=== PATIENT | female | born 1960 | race Hispanic/Latino ===

== ENCOUNTER 2018-01-17 18:12 | Emergency (ER) | payer BC ==
[2018-01-17 18:41] VITALS: BP 146/83; PULSE 66; RESP 20; TEMP 98.6; O2SAT 100
[2018-01-17] MEDS ORDERED: Naproxen 500 MG TAB PO STA (18:57)
[2018-01-17] MEDS ORDERED: Naproxen 500 MG TAB PO ONE (19:02)
--- NOTE | 2018-01-17 19:22 | ED PDOC ---
HPI: Trauma/Fall - HPI Time Seen by Provider: 01/17/18 18:45 Chief Complaint (Nursing): Trauma Chief Complaint (Provider): Left Upper Extremity Pain History Per: Patient History/Exam Limitations: no limitations Injury Occurred (Timing): Just Before Arrival Past Medical History Reviewed: Historical Data, Nursing Documentation, Vital Signs Vital Signs: Last Vital Signs Temp 98.6 F 01/17/18 18:39 Pulse 66 01/17/18 18:39 Resp 20 01/17/18 18:39 BP 146/83 01/17/18 18:39 Pulse Ox 100 01/17/18 18:39 - Medical History PMH: Depression - Surgical History Surgical History: No Surg Hx - Family History Family History: States: Unknown Family Hx - Home Medications Home Medications: Ambulatory Orders Medication Instructions Recorded Docusate Sodium [Colace] 100 mg PO DAILY #10 capsule 04/16/17 oxyCODONE/Acetaminophen [Percocet 1 ea PO Q6H PRN #15 tab 01/17/18 5/325 mg Tab] - Allergies Allergies/Adverse Reactions: Allergies Allergy/AdvReac Type Severity Reaction Status Date / Time No Known Allergies Allergy Verified 01/17/18 18:39 - ECG O2 Sat by Pulse Oximetry: 100 (RA) Pulse Ox Interpretation: Normal Medical Decision Making Medical Decision Making: Plan: -Left Hand X-ray -Naproxen 500mg PO X-ray shows fracture of left 4th metacarpal. Fracture is slightly displaced. Scribe Attestation: Documented by Vic Guevara, acting as a scribe for Zenobia Dhillon PA-C. Provider Scribe Attestation: All medical record entries made by the scribe were at my direction and personally dictated by me. I have reviewed the chart and agree that the record accurately reflects my personal performance of the history, physical exam, medical decision making, and the department course for this patient. I have also personally directed, reviewed, and agree with the discharge instructions and disposition. Disposition - Clinical Impression Clinical Impression: Metacarpal bone fracture, Arm fracture - Patient ED Disposition Is Patient to be Admitted: No Counseled Patient/Family Regarding: Diagnosis, Need For Followup, Rx Given - Disposition Referrals: Rell Adan MD [Medical Doctor] - Disposition: Routine/Home Disposition Time: 19:25 Condition: STABLE Prescriptions: oxyCODONE/Acetaminophen [Percocet 5/325 mg Tab] 1 ea PO Q6H PRN #15 tab PRN Reason: Pain, Severe (8-10) Instructions: Hand Fracture Forms: [facility] (Ukrainian)
--- NOTE | 2018-01-18 08:58 | RAD ---
PROCEDURE: Left Hand Radiographs. HISTORY: pain, fall, FOOSH COMPARISON: None. FINDINGS: BONES: There is an acute nondisplaced fracture in the midshaft of the 4th metacarpal. Bone alignment is normal. There is mild periarticular bone demineralization. JOINTS: Normal. No osteoarthritic changes. SOFT TISSUES: Normal. OTHER FINDINGS: None. IMPRESSION: Acute nondisplaced fracture in the midshaft of the 4th metacarpal.
== END 2018-01-17 21:44 | disposition home or self-care (01) ==
LOC: H.ER 18:12
DX: S62.305A Unspecified fracture of fourth metacarpal bone, left hand, initial encounter for closed fracture (principal); W01.0XXA Fall on same level from slipping, tripping and stumbling without subsequent striking against object, initial encounter; Z86.59 Personal history of other mental and behavioral disorders